=== PATIENT | male | born 1965 | race Caucasian/White ===

== ENCOUNTER 2020-03-06 08:27 | Outpatient (CLI) | payer OTHER, SELFPAY ==
--- NOTE | 2020-03-06 08:00 | USCV_ITS ---
Uriel Kowalski Age: 54 Gender: M : 1965 Exam Date: 03/06/2020 08:51 Ordering Phys: Tra Salcido MD ([email or web address]) Technologist: Zoie Tejada [place] [facility] [place]: Eval LV function BP: 111 / 56 HR: 56 Rhythm: Sinus Technical Quality: Adequate MEASUREMENTS (Male / Female) Normal Values 2D ECHO LV Diastolic Diameter PLAX 3.7 cm 4.2 - 5.9 / 3.9 - 5.3 cm LV Systolic Diameter PLAX 2.1 cm LV Chamber Size 3.8 cm IVS Diastolic Thickness 1.4 cm 0.6 - 1.0 / 0.6 - 0.9 cm IVS Systolic Thickness 2.0 cm LVPW Diastolic Thickness 1.6 cm 0.6 - 1.0 / 0.6 - 0.9 cm LVPW Systolic Thickness 1.9 cm RV Chamber Size 3.5 cm LVOT Diameter 2.0 cm LV Ejection Fraction 2D Teich 75.8 % LV Ejection Fraction MOD 2C 66.3 % LV Ejection Fraction 2C AL 67.7 % LA Diameter 4.0 cm LA Width 3.0 cm LA Height 4.6 cm RA Width 2.6 cm RA Height 4.7 cm Aorta at Sinotubular Diameter 2.9 cm M-MODE LV Diastolic Diameter MM 3.8 cm 4.2 - 5.9 / 3.9 - 5.3 cm LV Systolic Diameter MM 1.7 cm LV Ejection Fraction MM Teich 86.9 % IVS Diastolic Thickness MM 0.8 cm 0.6 - 1.0 / 0.6 - 0.9 cm IVS Systolic Thickness MM 1.4 cm LVPW Diastolic Thickness MM 1.1 cm 0.6 - 1.0 / 0.6 - 0.9 cm LVPW Systolic Thickness MM 1.3 cm Aortic Annulus Diameter 3.1 cm LA Ao Ratio MM 1.3 MV E Point Septal Separation 0.5 cm DOPPLER AV Peak Velocity 99.0 cm/s LVOT Peak Velocity 90.0 cm/s AV Area Cont Eq vti 2.9 cm squared AV Area Cont Eq pk 2.9 cm squared MV Area PHT 3.1 cm squared Mitral E to A Ratio 1.6 MV E' Velocity 9.0 cm/s Mitral E to MV E' Ratio 11.4 Mitral E to LV E' Lateral Ratio 11.4 Mitral E to LV E' Septal Ratio 11.6 TR Peak Velocity 198.0 cm/s TR Peak Gradient 15.7 mmHg TV Peak E Velocity 62.0 cm/s Right Atrial Pressure 3.0 mmHg Pulmonary Artery Systolic Pressu 18.7 mmHg PV Peak Velocity 81.0 cm/s RV Acceleration Time 0.2 s RV Ejection Time 0.4 s RV AcT/ET 0.4 FINDINGS Left Ventricle Normal left ventricular cavity size. Normal left ventricular systolic function. No regional wall motion abnormalities. Left ventricular ejection fraction is estimated at 60 %. Normal diastolic function. Right Ventricle The right ventricle is normal in size and function. Right Atrium The right atrium is normal in size. Left Atrium The left atrium is normal in size. Mitral Valve Moderately thickened mitral valve. No mitral valve stenosis. Mild mitral valve regurgitation. Moderate mitral annular calcification. Aortic Valve Aortic valve sclerosis without stenosis or regurgitation. Tricuspid Valve Structurally normal tricuspid valve without significant stenosis or regurgitation. Pulmonary artery systolic pressure is normal. Pulmonic Valve Structurally normal pulmonic valve without significant stenosis. There is no pulmonic regurgitation. Pericardium Normal pericardium without effusion. Aorta Normal ascending aorta dimension. CONCLUSIONS 1-Normal left ventricular cavity size. Normal left ventricular systolic function. No regional wall motion abnormalities. Left ventricular ejection fraction is estimated at 60 %. Normal diastolic function. 2-Moderately thickened mitral valve. No mitral valve stenosis. Mild mitral valve regurgitation. Moderate mitral annular calcification. 3-There is no pericardial effusion. 4-No significant valve abnormalities. 5-Right atrial pressure is around 5 mm of mercury. 6-There are no prior echocardiogram studies to compare. Tra Salcido MD (Electronically Signed) Final Date: 08 Mar 2020 18:46 S
--- NOTE | 2020-03-06 09:30 | USCV_ITS ---
Uriel Kowalski Age: 54 Gender: M : 1965 Exam Date: 03/06/2020 09:03 Ordering Phys: Tra Salcido MD ([email or web address]) Technologist: Zoie Tejada Exam Location: [facility] – [place] Indication: CLAUDICATION HISTORY: claudication PROCEDURES: Venous duplex imaging was performed in bilateral lower extremities. The following venous structures were evaluated: common femoral vein, profunda vein, proximal portion of the greater saphenous vein, superficial femoral vein, and the popliteal vein. Serial compression, augmentation maneuvers, and spectral Doppler flow evaluation were performed. FINDINGS: Normal 2-D Doppler and augmentation and compressibility throughout the lower extremity venous structures. Additional imaging through the proximal calf veins also reveals no thrombus. Limited evaluation of the greater saphenous vein is patent with no thrombus.. CONCLUSIONS No evidence of DVT in the above-mentioned identifiable veins on both sides. Dr Emily Nicolas MD FAC (Electronically Signed) Final Date: 06 Mar 2020 19:38 S
== END 2020-03-06 08:28 | disposition home or self-care (01) ==
LOC: RAD 08:29
PROVIDERS: Visit Provider Internal Medicine Cardiovascular Disease
DX: R06.02 Shortness of breath (principal); I73.9 Peripheral vascular disease, unspecified; I34.1 Nonrheumatic mitral (valve) prolapse
CPT/HCPCS: 93306; 93970

== ENCOUNTER 2020-03-17 15:22 | Outpatient (CLI) | payer OTHER, SELFPAY ==
--- NOTE | 2020-03-17 | USCV_ITS ---
Uriel Kowalski Age: 54 Gender: M : 1965 Exam Date: 03/17/2020 15:17 Ordering Phys: Tra Salcido MD ([email or web address]) Technologist: Fabian Doherty [place] [facility] [place]: CLAUDICATION RIGHT LEFT Brachial 153.00 mmHg Brachial 132.00 mmHg Pressure (mmHg) Waveform Pressure (mmHg) Waveform 184.00 EDUCATIONAL INSTITUTION CURATOR 180.00 192.00 DPA 163.00 1.25 Ankle/Brachial Index 1.18 142.00 Pre-Exercise Toe Pressure 135.00 0.93 Pre-Exercise Toe/Brachial Index 0.88 FINDINGS Normal resting ABIs bilaterally Normal resting TBIs bilaterally Elevated segmental pressures CONCLUSIONS No significant arterial obstruction, based on the above finding Dr Emily Nicolas MD [facility] (Electronically Signed) Final Date: 20 March 2020 13:03 S
== END 2020-03-17 15:23 | disposition home or self-care (01) ==
LOC: RAD 15:22
PROVIDERS: Visit Provider Internal Medicine Cardiovascular Disease
DX: M79.604 Pain in right leg (principal); M79.605 Pain in left leg
CPT/HCPCS: 93922

== ENCOUNTER → 2020-05-17 12:22 | Outpatient (BNVA) | payer OTHER, SELFPAY | PROVIDERS: Referring Provider Family Medicine; Visit Provider Anesthesiology Pain Medicine | DX: M47.816 Spondylosis without myelopathy or radiculopathy, lumbar region (principal); M54.16 Radiculopathy, lumbar region; M54.9 Dorsalgia, unspecified; I73.9 Peripheral vascular disease, unspecified; G62.9 Polyneuropathy, unspecified; Z79.891 Long term (current) use of opiate analgesic | CPT/HCPCS: 99205 ==

== ENCOUNTER 2020-05-29 10:29 | Outpatient (CLI) | payer OTHER, SELFPAY ==
--- NOTE | 2020-05-29 11:00 | MR_ITS ---
WS: [id number] MRI LUMBAR SPINE NONCONTRAST TECHNIQUE: Sagittal T1, T2 and STIR imaging. Axial T1 and T2 imaging. CLINICAL INFORMATION: M54.16 Radiculopathy, lumbar region COMPARISON: None. FINDINGS: Mild lumbar curve. No acute compression. No high-grade central canal stenosis. L1-L2: Mild disc bulging with slight effacement of ventral thecal sac. Spinal canal and foramen are p atent. Mild facet arthropathy. L2-L3: Normal. L3-L4: Mild annular bulging. Small left foraminal protrusion with mild left foraminal narrowing. Mild facet arthropathy. Spinal canal is patent. L4-L5: Mild disc bulging with slight effacement of ventral thecal sac. Mild left greater than right f oraminal narrowing. Mild to moderate facet arthropathy. Spinal canal is patent. L5-S1: Minimal disc bulging. Moderate facet arthropathy. Small facet effusions. Foramen are patent. Small right renal cyst measuring 4.4 x 3.6 cm MR/MR lumbar spine wo con* [id number] IMPRESSION: 1. Mild lumbar curve. No acute compression. No high-grade central canal stenos is. 2. Mild bilateral L4-5 foraminal narrowing due to eccentric disc bulging with osteophytic ridging. Contact of the exiting L4 nerve roots bilaterally. 3. Small left foraminal protrusion L3-4 with mild left foraminal narrowing. 4. Mild to moderate facet arthropathy L3-L5 with small facet effusions. 5. No high-grade central canal stenosis. 6. Partially visualized right renal cyst measuring 3.6 x 4.4 cm
== END 2020-05-29 10:30 | disposition home or self-care (01) ==
LOC: RADSHAW 10:29
PROVIDERS: Visit Provider Anesthesiology Pain Medicine
DX: M54.16 Radiculopathy, lumbar region (principal); M47.816 Spondylosis without myelopathy or radiculopathy, lumbar region; N28.1 Cyst of kidney, acquired; M25.78 Osteophyte, vertebrae; G03.9 Meningitis, unspecified
CPT/HCPCS: 72148

== ENCOUNTER → 2020-06-14 10:29 | Outpatient (BNVA) | payer OTHER, SELFPAY | PROVIDERS: PCP Family Medicine; Visit Provider Anesthesiology Pain Medicine | DX: M54.42 Lumbago with sciatica, left side (principal); M54.41 Lumbago with sciatica, right side; M54.9 Dorsalgia, unspecified; M47.816 Spondylosis without myelopathy or radiculopathy, lumbar region; M54.16 Radiculopathy, lumbar region; M46.96 Unspecified inflammatory spondylopathy, lumbar region; G62.9 Polyneuropathy, unspecified; I73.9 Peripheral vascular disease, unspecified; F17.210 Nicotine dependence, cigarettes, uncomplicated; Z79.891 Long term (current) use of opiate analgesic | CPT/HCPCS: 99214 ==

== ENCOUNTER → 2020-06-27 13:56 | Outpatient (BNVA) | payer OTHER, SELFPAY | PROVIDERS: PCP Family Medicine; Visit Provider Anesthesiology Pain Medicine | DX: M47.816 Spondylosis without myelopathy or radiculopathy, lumbar region (principal); M54.9 Dorsalgia, unspecified; Z79.891 Long term (current) use of opiate analgesic; F17.210 Nicotine dependence, cigarettes, uncomplicated | CPT/HCPCS: 64635; 64636; J1030 ==

== ENCOUNTER → 2020-07-24 12:03 | Outpatient (BNVA) | payer OTHER, SELFPAY | PROVIDERS: PCP Family Medicine; Visit Provider Anesthesiology Pain Medicine | DX: M47.816 Spondylosis without myelopathy or radiculopathy, lumbar region (principal); M54.9 Dorsalgia, unspecified; F17.210 Nicotine dependence, cigarettes, uncomplicated; Z79.891 Long term (current) use of opiate analgesic | CPT/HCPCS: 64635; 64636; J1030 ==

== ENCOUNTER → 2020-08-07 10:38 | Outpatient (BNVA) | payer OTHER, SELFPAY | PROVIDERS: PCP Family Medicine; Visit Provider Anesthesiology Pain Medicine | DX: M79.18 Myalgia, other site (principal); M47.816 Spondylosis without myelopathy or radiculopathy, lumbar region; G62.9 Polyneuropathy, unspecified; M54.9 Dorsalgia, unspecified; I73.9 Peripheral vascular disease, unspecified; F17.210 Nicotine dependence, cigarettes, uncomplicated; Z79.891 Long term (current) use of opiate analgesic | CPT/HCPCS: 20553; 99213; J1030; J3490 ==

== ENCOUNTER → 2022-02-07 10:56 | Outpatient (BNVA) | payer OTHER, SELFPAY | PROVIDERS: PCP Family Medicine; Visit Provider Internal Medicine Cardiovascular Disease | DX: I10 Essential (primary) hypertension (principal); Z79.891 Long term (current) use of opiate analgesic; E03.9 Hypothyroidism, unspecified; E78.5 Hyperlipidemia, unspecified; R94.39 Abnormal result of other cardiovascular function study; R06.02 Shortness of breath; F17.210 Nicotine dependence, cigarettes, uncomplicated; Z79.82 Long term (current) use of aspirin; I73.9 Peripheral vascular disease, unspecified | CPT/HCPCS: 99214 ==

== ENCOUNTER → 2022-09-30 12:46 | Outpatient (BNVA) | payer OTHER, SELFPAY | PROVIDERS: PCP Family Medicine; Visit Provider Nurse Practitioner Family | DX: I73.9 Peripheral vascular disease, unspecified (principal); F17.210 Nicotine dependence, cigarettes, uncomplicated | CPT/HCPCS: 99214 ==

== ENCOUNTER 2022-10-14 12:55 | Outpatient (CLI) | payer OTHER, SELFPAY ==
--- NOTE | 2022-10-14 13:00 | CT_ITS ---
WS: [id number] CTA ABDOMINAL AORTA WITH RUNOFF TECHNIQUE: Contrast enhanced CTA of the abdominal aorta with bilateral lower extremity runoff. Multip lanar reformatted images were obtained. MIP reformats were also reviewed. CLINICAL INFORMATION: absent DP left COMPARISON: None. DLP: 988.[address] scans at [facility] use at least one of these dose optimization techniques: automated e xposure control; mA and/or kV adjustment per patient size (includes targeted exams where dose is matc hed to clinical indication); or iterative reconstruction. FINDINGS: Normal caliber abdominal aorta. Celiac and SMA are patent. Proximal renal arteries are robert nt. MAGO is patent. No abdominal aortic aneurysm. RIGHT: RIGHT common iliac artery is patent. External and internal iliac arteries are patent with mild calcification. RIGHT common femoral artery is patent. Superficial femoral and deep femoral arteries are patent. Popliteal artery is patent to the trifurcation. Three-vessel runoff to the ankle. Somewha t diminutive anterior tibial and peroneal arteries. LEFT: LEFT common iliac artery is patent. External and internal iliac arteries are patent. LEFT commo n femoral artery is patent. Superficial femoral and deep femoral arteries are patent. Popliteal arter y is patent. Three-vessel runoff to the ankle. Diminutive anterior tibial and peroneal arteries. Lorna nant posterior tibial artery. Lung bases are well aerated. Adrenal glands are normal. Normal renal parenchymal enhancement. No hydr onephrosis in either kidney. Bilateral renal cysts. Largest RIGHT renal cyst measures 5.3 cm lower po le. Small esophageal hiatal hernia. Air-fluid level in the small hernia. Normal pancreatic parenchymal en hancement. Normal portal vein and splenic vein. Small splenule. Fat-containing umbilical hernia. Norm al sigmoid colon. Normal lumbar spine. CT/CT angio abd aorta runof [id number] IMPRESSION: 1. Normal caliber abdominal aorta. No aneurysm. 2. Celiac and SMA are patent. Proximal renal arteries are patent. MAGO is paten t. 3. RIGHT: RIGHT common iliac, external iliac and common femoral arteries are p atent. Superficial femoral and popliteal arteries are patent without flow-limit ing stenosis. Three-vessel runoff to the ankle with somewhat diminutive anterio r tibial and peroneal arteries which remain patent. 4. LEFT: LEFT common iliac,external iliac and common femoral arteries are robert nt. Superficial femoral and popliteal arteries are patent without flow-limiting stenosis. Three-vessel runoff to the ankle with diminutive anterior tibial and peroneal arteries which remain patent. Dominant posterior tibial artery. 5. Nonvascular findings described above
[2022-10-14] MEDS: iohexol 350 mg/mL 500 mL Btl (per mL) IV (13:24)
== END 2022-10-14 12:56 | disposition home or self-care (01) ==
LOC: RAD 12:55
PROVIDERS: PCP Family Medicine; Visit Provider Nurse Practitioner Family
DX: G62.9 Polyneuropathy, unspecified (principal); I73.9 Peripheral vascular disease, unspecified
CPT/HCPCS: 75635; Q9967

== ENCOUNTER → 2023-01-16 12:57 | Outpatient (BNVA) | payer OTHER, SELFPAY | PROVIDERS: PCP Family Medicine; Visit Provider Specialist | DX: Z01.818 Encounter for other preprocedural examination (principal); R00.1 Bradycardia, unspecified; G47.33 Obstructive sleep apnea (adult) (pediatric); Z99.89 Dependence on other enabling machines and devices; E78.5 Hyperlipidemia, unspecified; I10 Essential (primary) hypertension; F17.210 Nicotine dependence, cigarettes, uncomplicated; Z79.82 Long term (current) use of aspirin | CPT/HCPCS: 93005; 99214 ==

== ENCOUNTER → 2023-07-29 12:59 | Outpatient (BNVA) | payer OTHER, SELFPAY | PROVIDERS: PCP Family Medicine; Visit Provider Thoracic Surgery (Cardiothoracic Vascular Surgery) | DX: I73.9 Peripheral vascular disease, unspecified (principal); F17.210 Nicotine dependence, cigarettes, uncomplicated | CPT/HCPCS: 99203 ==

== ENCOUNTER 2023-08-05 07:47 | Outpatient (CLI) | payer OTHER, SELFPAY ==
--- NOTE | 2023-08-05 08:15 | USCV_ITS ---
Uriel Kowalski Age: 58 Gender: M : 1965 Exam Date: 08/05/2023 08:07 Ordering Phys: Anuj Macias MD (Andy) ([email or web address]) Technologist: Exam Location: [facility] [place] Indication: rt foot pain Risk Factors: Previous Vascular Surgery: RIGHT LEFT Waveform Velocity (cm/s) Velocity (cm/s) Waveform Triphasic Iliac Prox Triphasic 119.6 102.5 Triphasic 124.3 Iliac Mid 121.3 Triphasic Triphasic 135.2 Iliac Distal 115.8 Triphasic Triphasic 129.0 MARINE ELECTRICIAN HELPER 104.7 Triphasic Triphasic 115.0 SFA Prox 95.9 Triphasic Triphasic 121.2 SFA Mid 86.0 Triphasic Triphasic 127.4 SFA Dist 86.0 Triphasic Triphasic 77.7 POP 84.9 Triphasic Triphasic 72.0 PASSEMENTERIE WORKER 94.8 Triphasic Biphasic 67.3 DPA 77.0 Triphasic 1.2 LISA 1.2 FINDINGS 145/ 80 rt brach 150/80 rt brach rt fire captain 185 rt fire captain 180 lt fire captain 185 lt dpt 175 Intimal thickening in the iliac and femoral arteries bilaterally. Normal arterial Doppler waveforms and velocities bilaterally. Resting LISA 1.2 on both sides CONCLUSIONS Normal resting ABIs, arterial Doppler waveforms and velocities bilaterally suggesting no significant arterial obstruction Dr Emily Nicolas MD [facility] (Electronically Signed) Final Date: 06 August 2023 09:07 S
== END 2023-08-05 07:48 | disposition home or self-care (01) ==
LOC: RAD 07:48
PROVIDERS: PCP Family Medicine; Visit Provider Thoracic Surgery (Cardiothoracic Vascular Surgery)
DX: M79.605 Pain in left leg (principal); M79.604 Pain in right leg; M79.671 Pain in right foot
CPT/HCPCS: 93925

== ENCOUNTER → 2023-11-03 12:55 | Outpatient (BNVA) | payer OTHER, SELFPAY | PROVIDERS: PCP Family Medicine; Visit Provider Nurse Practitioner Family | DX: I10 Essential (primary) hypertension (principal); F17.210 Nicotine dependence, cigarettes, uncomplicated | CPT/HCPCS: 99213 ==

== ENCOUNTER → 2024-03-23 14:43 | Outpatient (BNVA) | payer OTHER, SELFPAY | PROVIDERS: PCP Family Medicine; Referring Provider Nurse Practitioner Family; Visit Provider Student in an Organized Health Care Education/Training Program | DX: S83.91XA Sprain of unspecified site of right knee, initial encounter; X58.XXXA Exposure to other specified factors, initial encounter | CPT/HCPCS: 99204 ==

== ENCOUNTER → 2024-06-10 10:56 | Outpatient (BNVA) | payer OTHER, SELFPAY | PROVIDERS: PCP Family Medicine; Visit Provider Nurse Practitioner Family | DX: I10 Essential (primary) hypertension (principal) | CPT/HCPCS: 99213 ==

== ENCOUNTER → 2024-07-21 09:46 | Outpatient (BNVA) | payer OTHER, SELFPAY | PROVIDERS: PCP Family Medicine; Visit Provider Internal Medicine | DX: R06.02 Shortness of breath (principal); R00.1 Bradycardia, unspecified; I10 Essential (primary) hypertension; E78.5 Hyperlipidemia, unspecified; G47.33 Obstructive sleep apnea (adult) (pediatric); Z99.89 Dependence on other enabling machines and devices; E03.9 Hypothyroidism, unspecified; Z79.891 Long term (current) use of opiate analgesic; Z87.891 Personal history of nicotine dependence | CPT/HCPCS: 99214 ==

== ENCOUNTER 2024-08-30 12:17 | Outpatient (CLI) | payer OTHER, SELFPAY ==
--- NOTE | 2024-08-30 12:45 | USCV_ITS ---
Uriel Kowalski Age: 59 Gender: M : 1965 Exam Date: 08/30/2024 12:32 Ordering Phys: Gucci Pompa M.D ([email or web address]) Technologist: CT Exam Location: [place] Indication: BP: 130 / 82 HR: 54 Rhythm: Sinus Technical Quality: Adequate MEASUREMENTS (Male / Female) Normal Values 2D ECHO LVOT Diameter 2.1 cm LV Ejection Fraction MOD 4C 61.9 % LV Ejection Fraction MOD 2C 64.0 % LV Ejection Fraction 2C AL 63.1 % LA Diameter 4.2 cm RA Systolic Volume 4C AL 48.1 ml RA Systolic Volume 4C MOD 46.5 ml LA Sys Volume AL 86.0 cm cubed LA Sys Volume Index AL 36.8 cm cubed/m squared Aorta at Sinotubular Diameter 2.5 cm IVC Diameter 1.8 cm M-MODE LA Ao Ratio MM 1.5 AV Cusp Separation MM 2.2 cm DOPPLER AV Peak Velocity 124.0 cm/s LVOT Peak Velocity 126.0 cm/s AV Area Cont Eq vti 3.3 cm squared AV Area Cont Eq pk 3.4 cm squared MV Peak Velocity 117.0 cm/s MV Area PHT 3.8 cm squared Mitral E to A Ratio 1.4 TV Peak Velocity 162.0 cm/s TR Peak Velocity 175.0 cm/s TR Peak Gradient 12.3 mmHg TV Peak E Velocity 59.0 cm/s Right Atrial Pressure 3.0 mmHg Pulmonary Artery Systolic Pressu 15.3 mmHg PV Peak Velocity 115.5 cm/s FINDINGS Left Ventricle Normal left ventricular size, systolic function and wall thickness, with no regional wall motion abnormalities. Left ventricular ejection fraction is estimated at 60 %. Grade II/IV diastolic dysfunction, moderately elevated filling pressures. Right Ventricle The right ventricle is normal in size and function. Right Atrium The right atrium is normal in size. Left Atrium The left atrium is normal in size. Mitral Valve Thickened mitral valve. No mitral valve stenosis. Trace mitral valve regurgitation. Aortic Valve Moderate aortic valve calcification. No aortic valve stenosis. Trace aortic valve regurgitation. Tricuspid Valve Structurally normal tricuspid valve without significant stenosis or regurgitation. Pulmonary artery systolic pressure is normal. Pulmonic Valve Structurally normal pulmonic valve without significant stenosis. There is no pulmonic regurgitation. Pericardium Normal pericardium without effusion. Aorta Normal ascending aorta dimension. IVC The inferior vena cava appears normal. CONCLUSIONS Normal left ventricular size, systolic function and wall thickness, with no regional wall motion abnormalities. Left ventricular ejection fraction is estimated at 60 %. Grade II/IV diastolic dysfunction, moderately elevated filling pressures. There is no pericardial effusion. No significant valve abnormalities. Pulmonary artery systolic pressure is within normal limits. Right atrial pressure is around 5 mm of mercury. Tra Salcido MD (Electronically Signed) Final Date: 30 August 2024 19:31 S
== END 2024-08-30 12:18 | disposition home or self-care (01) ==
LOC: RAD 12:17
PROVIDERS: PCP Family Medicine; Visit Provider Internal Medicine
DX: I50.30 Unspecified diastolic (congestive) heart failure (principal); I34.81 Nonrheumatic mitral (valve) annulus calcification; I25.84 Coronary atherosclerosis due to calcified coronary lesion; R06.02 Shortness of breath
CPT/HCPCS: 93306

== ENCOUNTER → 2025-04-20 12:56 | Outpatient (BNVA) | payer OTHER, SELFPAY | PROVIDERS: PCP Family Medicine; Visit Provider Internal Medicine | DX: R07.89 Other chest pain (principal); R06.02 Shortness of breath; R00.1 Bradycardia, unspecified; I10 Essential (primary) hypertension; G47.33 Obstructive sleep apnea (adult) (pediatric); Z99.89 Dependence on other enabling machines and devices; E03.9 Hypothyroidism, unspecified; Z79.02 Long term (current) use of antithrombotics/antiplatelets; Z79.82 Long term (current) use of aspirin; Z79.891 Long term (current) use of opiate analgesic; F17.210 Nicotine dependence, cigarettes, uncomplicated | CPT/HCPCS: 99214 ==

== ENCOUNTER 2025-05-30 08:40 | Outpatient (CLI) | payer OTHER, SELFPAY ==
--- NOTE | 2025-05-30 | ECG_ITS ---
[facility] Pat Name: Uriel Kowalski Department: Room: Gender: Male Internal Revenue Service Agent: : 1965 Requested By: Gucci Pomap Order Number: [id number] Jean Marie MD: JANELLE HERBERT Interpretive Statements Lung unchanged pre/post procedure; Intraprocedure shortess of breath; Symptoms resoled by discharge NOTE: Please note that this is the electrocardiogram portion of the Lexiscan/Sestamibi stress test. The perfusion scan will be documented separately. DATA: Baseline heart rate was 55 beats per minute. Baseline blood pressure was 130/66 millimeters of mercury. Target heart rate was 158. Maximum heart rate achieved was 69. which was 43% of the predicted target heart rate. Maximum blood pressure was 130/70 millimeters of mercury. The reason for ending the test was completion of the protocol. The patient did not experience any symptoms. ELECTROCARDIOGRAM: BASELINE: Sinus bradycardia. Normal axis. Otherwise, no ST-T changes suggestive of ischemia noted. No arrhythmia noted. EXERCISE: After Lexiscan injection, no ST-T changes suggestive of ischemic noted. No arrhythmia noted. CONCLUSION: Please note due to baseline abnormality of the EKG specificity and sensitivity of the EKG portion of LexiScan MIBI stress test will be low 1. EKG not suggestive of ischemia 2. Lexiscan injection unremarkable. 3. Perfusion scan will be documented separately. Electronically Signed On 05-30-2025 18:03:49 CDT by JANELLE HERBERT [email or web address]
[2025-05-30 08:56] VITALS: BMI 43.2
--- NOTE | 2025-05-30 08:59 | NMCV_ITS ---
NM geremias perf SPECT r/s* [id number] Uriel Kowalski Age: 60 Gender: M : 1965 Exam Date: 05/30/2025 10:09 Ordering Phys: Gucci Pompa M.D ([email or web address]) Technologist: SANDRA Butler Exam Location: [facility] Indications: cp STRESS TEST [facility] IMAGE PROTOCOL Rest/Stress 1 Lexiscan Day Radiopharmaceutical Dose (mCi) Administration Site Administered by Rest: Tc-99m 10.6 IV Tarsha Nixon CONFERENCE SERVICES COORDINATOR Sestamibi Stress:Tc-99m 32.6 IV Tarsha Nixon, CONFERENCE SERVICES COORDINATOR Sestamibi Rest: 30-May-2025 60 Discovery 630 Stress: 30-May-2025 30 Discovery 630 0.4mg Lexiscan. Images obtained in supine and prone position. SPECT RESULTS Technical Quality: Good Raw Data Analysis: Normal Image Corrections: No attenuation or motion correction applied Summed Stress Score: 0 Summed Rest Score: 2 Summed Difference Score: 0 PERFUSION FINDINGS SPECT images demonstrate homogeneous tracer distribution throughout the myocardium. FUNCTIONAL RESULTS (calculated via Gated SPECT) Stress Image LV EF (%): 77 Stress EDV (mL):115 TID: 1.06 Stress ESV (mL):27 FUNCTIONAL FINDINGS: There is normal left ventricular systolic function. IMPRESSIONS 1. Normal myocardial perfusion imaging with no evidence of ischemia 2. LV systolic function is normal Gucci Pompa MD (Electronically Signed) Final Date: 01 June 2025 08:23 S
[2025-05-30 11:08] VITALS: BP 108/63; PULSE 68
== END 2025-05-30 08:41 | disposition home or self-care (01) ==
LOC: CDL 08:43
PROVIDERS: PCP Family Medicine; Visit Provider Internal Medicine
DX: R07.9 Chest pain, unspecified (principal)
CPT/HCPCS: 36415; 78452; 93017; 96374; A9500; J2785

== ENCOUNTER → 2025-07-04 13:00 | Outpatient (BNVA) | payer OTHER, SELFPAY | PROVIDERS: PCP Family Medicine; Referring Provider Family Medicine; Visit Provider Anesthesiology Pain Medicine | DX: M54.16 Radiculopathy, lumbar region (principal); M54.9 Dorsalgia, unspecified; M47.816 Spondylosis without myelopathy or radiculopathy, lumbar region | CPT/HCPCS: 99204 ==

== ENCOUNTER → 2025-07-05 13:03 | Outpatient (BNVA) | payer OTHER, SELFPAY | PROVIDERS: PCP Family Medicine; Visit Provider Internal Medicine | DX: Z01.810 Encounter for preprocedural cardiovascular examination (principal); I10 Essential (primary) hypertension; F17.290 Nicotine dependence, other tobacco product, uncomplicated | CPT/HCPCS: 99214 ==

== ENCOUNTER 2025-08-25 11:04 | Outpatient (CLI) | payer OTHER, SELFPAY ==
--- NOTE | 2025-08-25 11:45 | MRR_ITS ---
PROCEDURE INFORMATION: Exam: MR Lumbar Spine Without and With Contrast Exam date and time: 08/25/2025 12:14 PM Age: 60 years old Clinical indication: Low back pain; Chronic lbp, seeing new pain management And needing new MR; Additional info: M54.16 - radiculopathy, lumbar region TECHNIQUE: Imaging protocol: Magnetic resonance imaging of the lumbar spine without and with contrast. Total images: 197 Contrast material: OMNI 350; Contrast volume: 20 ml; Contrast route: INTRAVENOUS (IV); COMPARISON: 1. MR lumbar spine wo con* [id number] 05/29/2020 11:[address] angio abd aorta runof [id number] 10/14/2022 1:15 PM FINDINGS: Bones/joints: Lumbar vertebral column normal vertebral body height, alignment, and curvature. Spinal epidural space: Normal appearance of lower spinal cord. Conus medullaris demonstrates a normal taper at the L1-L2 level. Spinal cord: Visualized cord, conus medullaris and cauda equina are unremarkable without compression. T11-T12: Seen only on sagittal series. Capacious spinal canal and bilateral neural foramina. Unremarkable dorsal annulus. Unremarkable facets. T12-L1: Capacious spinal canal and bilateral neural foramina. Unremarkable dorsal annulus. Unremarkable facets. L1-L2: Mild degenerative acquired narrowing of the spinal canal accounted for by dorsal disc osteophytic ridge of 2 mm. Effacement of ventral epidural fat, abutment of the ventral thecal sac contour, moderate narrowing the canal, without underlying compression-induced neural element signal abnormality. Capacious bilateral neural foramina. Disc desiccation/moderate disc height loss and mild discogenic endplate marrow fatty infiltrative Modic II change. Prominent ventral (anterior) 9 mm disc osteophytic ridge not interfering with neural elements). L2-L3: Capacious spinal canal and bilateral neural foramina. Unremarkable dorsal annulus. Unremarkable facets. L3-L4: Capacious spinal canal and bilateral neural foramina. Unremarkable dorsal annulus. Unremarkable facets. L4-L5: Capacious spinal canal and bilateral neural foramina. Unremarkable dorsal annulus. Unremarkable facets. L5-S1: Capacious spinal canal and bilateral neural foramina. Unremarkable dorsal annulus. Unremarkable facets. Soft tissues: Mild dependent superficial subcutaneous soft tissue induration, a commonly seen incidental finding in supine patients at MRI. Posterior ligamentous complex, facet joint capsule, ligamentum flavum, interspinous ligament, and supraspinous ligament as well as the anterior longitudinal ligament appear intact. Kidneys and ureters: Likely benign left renal cyst(s) are present, requiring no further evaluation, measuring as large as 3.4 cm diameter. MR/MR lumbar spine wo/w con [id number] IMPRESSION: L1-L2 mild disc height loss, desiccation, and small dorsal disc osteophytic ridge. Effacement of ventral epidural fat, abutment of the ventral thecal sac contour, moderate narrowing the canal, without underlying compression-induced neural element signal abnormality. Comparable to CT findings 10/13/2022.
[2025-08-25] MEDS: gadobenate dimeglumine 20 mL vial IV (12:40)
== END 2025-08-25 11:05 | disposition home or self-care (01) ==
LOC: RAD 11:04
PROVIDERS: PCP Family Medicine; Visit Provider Anesthesiology Pain Medicine
DX: M54.16 Radiculopathy, lumbar region (principal); N28.1 Cyst of kidney, acquired; M48.061 Spinal stenosis, lumbar region without neurogenic claudication; M51.369 Other intervertebral disc degeneration, lumbar region without mention of lumbar back pain or lower extremity pain; M25.78 Osteophyte, vertebrae
CPT/HCPCS: 72158

== ENCOUNTER → 2025-09-05 07:42 | Outpatient (BNVA) | payer OTHER, SELFPAY | PROVIDERS: PCP Family Medicine; Visit Provider Anesthesiology Pain Medicine | DX: M47.816 Spondylosis without myelopathy or radiculopathy, lumbar region (principal); F17.210 Nicotine dependence, cigarettes, uncomplicated | CPT/HCPCS: 99214 ==